=== PATIENT | female | born 1995 | race Hispanic/Latino ===

== ENCOUNTER 2019-03-15 23:20 | Emergency (ER) | payer OTHER ==
[~2019-03-15] VITALS: Ht 149.9 cm; Wt 60.0 kg
[~2019-03-15 23:20] MED LIST: AUGM875T28 PO; MUCI600T37 PO
[2019-03-15] MEDS ORDERED: PREN29TA4 PO (23:30)
[2019-03-16] MEDS ORDERED: ACETAMINOPHEN *IV* 1,000 MG in IV 1 EA IV ONE ×2
[2019-03-16] MEDS ORDERED: NS 1,000 ML IV ONE
[2019-03-16] MEDS ORDERED: METOCLOPRAMIDE INJ 10MG/2ML VIAL (J2765) IV ONE
[2019-03-16] MEDS ORDERED: diphenhydrAMINE INJ 50MG/ML VIAL (J1200) IV ONE
[2019-03-16 00:13] LABS: BASO % 0.2 % (0.0-1.0); EOS # 0.1 10^3/uL (0.0-0.5); EOS % 0.7 % (0.0-3.0); HEMOGLOBIN 12.2 g/dl (12.0-15.5); LYMPH # 2.3 10^3/uL (1.5-5.0); LYMPH % 17.2 % (24.0-44.0); MEAN CORPUSCULAR HGB CONC 34.9 g/dl (32.0-36.5); MEAN CORPUSCULAR VOLUME 88.8 fl (80.0-96.0); MONO # 0.7 10^3/uL (0.0-0.8); MONO % 5.1 % (0.0-5.0); NEUTROPHILS # 10.1 10^3/uL (1.5-8.5); NEUTROPHILS % 76.1 % (36.0-66.0); PLATELET COUNT, AUTOMATED 238 10^3/uL (150-450); RED BLOOD COUNT 3.94 10^6/uL (4.00-5.40); WHITE BLOOD COUNT 13.3 10^3/uL (4.0-10.0)
[2019-03-16 00:25] LABS: ALBUMIN 3.3 GM/DL (3.2-5.2); ALT/SGPT 32 U/L (12-78); BILIRUBIN,DIRECT 0.1 MG/DL (0.0-0.2); BILIRUBIN,TOTAL 0.4 MG/DL (0.2-1.0); BLOOD UREA NITROGEN 6 MG/DL (7-18); CALCIUM LEVEL 8.9 MG/DL (8.5-10.1); CARBON DIOXIDE LEVEL 20 MEQ/L (21-32); CHLORIDE LEVEL 109 MEQ/L (98-107); CREATININE FOR GFR 0.53 MG/DL (0.55-1.30); GLOMERULAR FILTRATION RATE > 60.0 (>60); GLUCOSE, FASTING 86 MG/DL (70-100); LIPASE 103 U/L (73-393); POTASSIUM SERUM 3.8 MEQ/L (3.5-5.1); SODIUM LEVEL 138 MEQ/L (136-145); TOTAL PROTEIN 7.4 GM/DL (6.4-8.2)
[2019-03-16] MEDS ORDERED: REGL10TA6 PO (02:22)
[2019-03-16] MEDS ORDERED: KEFL500C17 PO (02:22)
[2019-03-16 02:28] VITALS: BP 110/57
[2019-03-16] MEDS ORDERED: CEPHALEXIN 500 MG CAP PO ONE (02:30)
--- NOTE | 2019-03-16 09:43 | REP ---
Emergency obstetric sonography: History: Pelvic cramping. 16 weeks gestation. Repeat dictation. Preliminary report is provided at the time of examination by [facility]. Findings: Scanning through the gravid uterus demonstrates a viable single intrauterine gestation in a breech lie. motion is observed and heart rate is recorded at 160 beats per minute. A posterior placenta is seen without evidence of previa. Closed cervical length is measured transabdominally at 3.5 cm. Amniotic fluid is subjectively normal. No anomaly is seen. anatomic survey is incomplete due to early gestational age and position. The following anatomic structures are identified and felt to be sonographically unremarkable: cranium, choroid plexus, cavum, diaphragm, left-sided stomach, abdominal wall cord insertion, three-vessel umbilical cord, kidneys and bladder, spine, upper and lower extremities. Biometry chart: BPD 3.5 cm 16 weeks 5 days Head circumference 13.2 cm 16 weeks 6 days Abdominal circumference 10.1 cm 16 weeks 1 day Femur length 2.1 cm 16 weeks 2 days Humeral length 2.1 centimeter 16 weeks 1 day HC/AC ratio normal 1.31 cephalic index normal 0.72, estimated weight 150 grams, 0 pounds 5 ounces, 27 percentile for 16 weeks 5 days. Impression: Viable single intrauterine gestation at 16 weeks 3 days by today's composite sonographic criteria. [facility] by sonography August 28, 2019. No complication is identified. anatomic survey less than complete as above. Early gestational age and position. Electronically Signed by Rodriguez Ford MD 03/16/2019 10:53 A
[2019-03-18] MEDS ORDERED: BACT800T5 PO (07:58)
== END 2019-03-16 02:39 | disposition home or self-care (01) ==
LOC: M ED 23:20
DX: N39.0 Urinary tract infection, site not specified (principal); G43.909 Migraine, unspecified, not intractable, without status migrainosus
CPT/HCPCS: 36415; 76811; 80048; 80076; 81001; 83690; 85025; 87088; 87186; 96361; 96365; 96375; 99284; J0131; J1200; J2765